=== PATIENT | female | born 1965 | race Caucasian/White ===

== ENCOUNTER 2016-10-11 11:43 | Emergency (ER) | payer OTHER ==
[~2016-10-11] VITALS: Ht 157.5 cm; Wt 110.0 kg
[~2016-10-11 11:43] MED LIST: ARMO60TA PO; CIPR500T4 PO; OXYC-360 PO; PROM25SU8 PO
[2016-10-11 11:44] VITALS: BP 140/79; PULSE 104; RESP 16; TEMP 97.4; O2SAT 99
[2016-10-11] MEDS ORDERED: LISI10TA3 PO (12:51)
[2016-10-11] MEDS ORDERED: LEVO.15 PO (12:51)
--- NOTE | 2016-10-11 12:52 | PD ---
HPI Chief Complaint: Abdominal Pain Time Seen by Provider: 12:52 Travel History International Travel<30 days: No Contact w/Intl Traveler<30days: No Traveled to known affect area: No History of Present Illness HPI 51-year-old female presents to the emergency department for evaluation of abdominal pain. She states the pain is generalized. She is mildly nauseous without vomiting. She has had an episode of diarrhea. Patient states that she has had a large kidney stone on the right and has a procedure scheduled with Dr. Holder October 27 and she is concerned she may not be able to wait this long. Denies any fever. She has felt chilled. She has history appendectomy. She has history of no other abdominal surgeries. No other symptoms to report at this time. [facility] Past Medical History Medical History: Denies Significant Hx ?: Not : 3 Para: 3 Tubal Ligation: Yes Past Surgical History Abdominal Surgery: Yes (LAP BAND 2005) Appendectomy: Yes Section: Yes (X3) Gynecologic Surgery: Yes (RIGHT KIDNEY STONE LASER SURGERY) Hysterectomy: Yes Social History Alcohol Use: No Tobacco Use: No Substance Use: No Allergies-Medications (Allergen,Severity, Reaction): Coded Allergies: Iodinated Contrast Media (Verified Allergy, Severe, Anaphylaxis, 10/11/16) Reported Meds & Prescriptions Reported Meds & Active Scripts Active Zofran (Ondansetron HCl) 4 Mg Tab 4 Mg PO Q6HR PRN Keflex (Cephalexin) 500 Mg Cap 500 Mg PO Q12H 10 Days Reported Lisinopril 10 Mg Tab 10 Mg PO DAILY Synthroid (Levothyroxine Sodium) 150 Mcg Tab 150 Mcg PO DAILY Review of Systems Except as stated in HPI: all other systems reviewed are Neg Physical Exam Narrative GENERAL: Well-nourished female patient, in no acute distress SKIN: Focused skin assessment warm/dry. HEAD: Atraumatic. Normocephalic. EYES: Pupils equal and round. No scleral icterus. No injection or drainage. ENT: No nasal bleeding or discharge. Mucous membranes pink and moist. NECK: Trachea midline. No JVD. CARDIOVASCULAR: Elevated rate and rhythm. No murmur appreciated. RESPIRATORY: No accessory muscle use. Clear to auscultation. Breath sounds equal bilaterally. GASTROINTESTINAL: Abdomen is tender, soft, generalized tenderness with palpation , mild guarding.. Hepatic and splenic margins not palpable. MUSCULOSKELETAL: No obvious deformities. No clubbing. No cyanosis. No edema. No significant CVA tenderness. NEUROLOGICAL: Awake and alert. No obvious cranial nerve deficits. Motor grossly within normal limits. Normal speech. PSYCHIATRIC: Appropriate mood and affect; insight and judgment normal. Data Data Last Documented VS Vital Signs Date Time Temp Pulse Resp B/P Pulse Ox O2 Delivery O2 Flow Rate FiO2 10/11/16 13:24 98 Room Air 10/11/16 11:44 97.4 104 16 140/79 Orders Complete Blood Count With Diff (10/11/16 13:05) Comprehensive Metabolic Panel (10/11/16 13:05) Lipase (10/11/16 13:05) Prothrombin Time / Inr (Pt) (10/11/16 13:05) Act Partial Throm Time (Ptt) (10/11/16 13:05) Urinalysis - C+S If Indicated (10/11/16 13:05) Ct Abd/Pel W/O Iv Contrast (10/11/16 13:05) Iv Access Insert/Monitor (10/11/16 13:05) Ecg Monitoring (10/11/16 13:05) Oximetry (10/11/16 13:05) Sodium Chlor 0.9% 1000 Ml Inj (Ns 1000 M (10/11/16 13:05) Sodium Chloride 0.9% Flush (Ns Flush) (10/11/16 13:15) Electrocardiogram (10/11/16 13:05) Ed Urine Pregnancytest Poc (10/11/16 13:05) Urine Culture (10/11/16 13:10) Ketorolac Inj (Toradol Inj) (10/11/16 14:30) Sodium Chlor 0.9% 1000 Ml Inj (Ns 1000 M (10/11/16 16:30) Ondansetron Inj (Zofran Inj) (10/11/16 16:30) Labs Laboratory Tests Test 10/11/16 10/11/16 13:10 13:13 Urine Color YELLOW Urine Turbidity HAZY Urine pH 5.5 Urine Specific Jones 1.024 Urine Protein 30 mg/dL Urine Glucose (UA) NEG mg/dL Urine Ketones 40 mg/dL Urine Occult Blood MOD Urine Nitrite POS Urine Bilirubin NEG Urine Urobilinogen LESS THAN 2.0 MG/DL Urine Leukocyte Esterase MOD Urine RBC 123 /hpf Urine WBC 28 /hpf Urine Squamous Epithelial 23 /hpf Cells Urine Bacteria MANY /hpf Urine Hyaline Casts 16 /lpf Urine Mucus MANY /lpf Microscopic Urinalysis Comment CULTURE INDICATED White Blood Count 11.8 TH/MM3 Red Blood Count 5.57 MIL/MM3 Hemoglobin 15.7 GM/DL Hematocrit 46.7 % Mean Corpuscular Volume 83.8 FL Mean Corpuscular Hemoglobin 28.2 PG Mean Corpuscular Hemoglobin 33.7 % Concent Red Cell Distribution Width 16.1 % Platelet Count 233 TH/MM3 Mean Platelet Volume 9.6 FL Neutrophils (%) (Auto) 76.5 % Lymphocytes (%) (Auto) 13.1 % Monocytes (%) (Auto) 8.3 % Eosinophils (%) (Auto) 1.7 % Basophils (%) (Auto) 0.4 % Neutrophils # (Auto) 9.0 TH/MM3 Lymphocytes # (Auto) 1.5 TH/MM3 Monocytes # (Auto) 1.0 TH/MM3 Eosinophils # (Auto) 0.2 TH/MM3 Basophils # (Auto) 0.1 TH/MM3 CBC Comment DIFF FINAL Differential Comment Prothrombin Time 10.7 SEC Prothromb Time International 1.0 RATIO Ratio Activated Partial 29.0 SEC Thromboplast Time Sodium Level 135 MEQ/L Potassium Level 3.8 MEQ/L Chloride Level 101 MEQ/L Carbon Dioxide Level 26.3 MEQ/L Anion Gap 8 MEQ/L Blood Urea Nitrogen 12 MG/DL Creatinine 0.93 MG/DL Estimat Glomerular Filtration 63 ML/MIN Rate Random Glucose 80 MG/DL Calcium Level 9.0 MG/DL Total Bilirubin 0.5 MG/DL Aspartate Amino Transf 21 U/L (AST/SGOT) Alanine Aminotransferase 26 U/L (ALT/SGPT) Alkaline Phosphatase 67 U/L Total Protein 7.9 GM/DL Albumin 3.4 GM/DL Lipase 105 U/L [facility] Medical Decision Making Medical Screen Exam Complete: Yes Emergency Medical Condition: Yes Medical Record Reviewed: Yes Differential Diagnosis Gastroenteritis versus pancreatitis versus cholecystitis versus renal calculi versus UTI Narrative Course 51 year-old female presents to emergency department for evaluation of abdominal pain. Patient does have a soft but generally tender abdomen. CBC is without acute concern. CMP is also without acute concern. Lipase is within normal limits. Urinalysis is a 30 proteinuria, 40 ketones, moderate occult blood, positive nitrate, moderate leukocyte esterase, 123 RBC, 28 WBC, many bacteria, many mucus, culture is indicated. I discussed the patient with my attending who recommended contacting Dr. Holder. Dr. Kye is manager talent acquisition for urology and Dr. Holder is out of town until the . He comes and evaluates the patient. He feels that her pain is possibly caused from something other than her stone. After some IV fluid she can be discharged home on oral antibiotics. Plan is discussed with the patient. She is comfortable with this plan of care. She agrees to return immediately with any acute worsening of symptoms. Diagnosis Primary Impression: Gastroenteritis Additional Impressions: UTI (urinary tract infection) Qualified Code: N39.0 - Urinary tract infection with hematuria, site unspecified Renal calculus, right Referrals: Primary Care Physician Urologist Patient Instructions: General Instructions, Urinary Tract Infection in Women ( ED) Additional Instructions: REst Maintain adequate oral hydration [place] diet Advance as tolerated Follow-up with Dr. Holder. Return immediately with any acute worsening of symptoms Med/Other Pt SpecificInfo: Prescription(s) given Scripts Ondansetron (Zofran)4 Mg Tab4 Mg PO Q6HR PRN (NAUSEA OR VOMITING) #15 TAB Ref 0 Prov:Tanya Sharma 10/11/16 Cephalexin (Keflex)500 Mg [id number] Mg PO Q12H 10 Days Ref 0 Prov:Tanya Sharma 10/11/16 Disposition: 01 DISCHARGE HOME Condition: Stable Tanya Sharma Oct 11, 2016 12:52
[2016-10-11] MEDS ORDERED: SODIUM CHLOR 0.9% 1000 ML INJ 1,000 ML IV SCH (13:05)
[2016-10-11] MEDS ORDERED: SODIUM CHLORIDE 0.9% FLUSH 10 ML FLUSH IV FLUSH PRN (13:15)
[2016-10-11 13:24] VITALS: O2SAT 98
[2016-10-11 13:56] LABS: BASOPHIL # 0.1 TH/MM3 (0-0.2); BASOPHIL % 0.4 % (0.0-2.0); EOSINOPHIL # 0.2 TH/MM3 (0-0.4); EOSINOPHIL % 1.7 % (0.0-4.0); HEMATOCRIT 46.7 % (35.0-46.0); HEMO FLAGS DIFF FINAL; LYMPH % 13.1 % (9.0-44.0); LYMPHOCYTE # 1.5 TH/MM3 (1.0-4.8); MEAN CELL VOLUME 83.8 FL (80.0-100.0); MEAN CORPUSCULAR HEMOGLOBIN 28.2 PG (27.0-34.0); MEAN CORPUSCULAR HGB CONC 33.7 % (32.0-36.0); MONO % 8.3 % (0.0-8.0); NEUT % 76.5 % (16.0-70.0); PLATELET COUNT 233 TH/MM3 (150-450); RED BLOOD COUNT 5.57 MIL/MM3 (4.00-5.30); RED CELL DISTRIBUTION WIDTH 16.1 % (11.6-17.2); WHITE BLOOD COUNT 11.8 TH/MM3 (4.0-11.0)
[2016-10-11 14:00] LABS: BACTERIA, URINE MANY /hpf; BLOOD, URINE MOD (NEG); COMMENT (UR) CULTURE INDICATED; CULTURE IF INDICATED CULTURE INDICATED; GLUCOSE,URINE NEG (NEG); HYALINE CAST, URINE 16 /lpf (RARE); KETONE, URINE 40 mg/dL (NEG); MUCUS URINE MANY /lpf (OCC); NITRITE,URINE POS (NEG); PH, URINE 5.5 (5.0-8.5); SQUAMOUS EPITHELIAL CELL URINE 23 /hpf (0-5); URINE COLOR YELLOW (YELLW/STRAW)
[2016-10-11 14:06] LABS: PROTHROMBIN TIME - PATIENT 10.7 SEC (9.8-11.6)
[2016-10-11 14:17] LABS: ALKALINE PHOSPHATASE 67 U/L (45-117); ALT (GPT) 26 U/L (10-53); TOTAL BILIRUBIN ADULT 0.5 MG/DL (0.2-1.0)
[2016-10-11 14:27] LABS: ANION GAP 8 MEQ/L (5-15); AST (GOT) 21 U/L (15-37); BICARBONATE 26.3 MEQ/L (21.0-32.0); BLOOD UREA NITROGEN 12 MG/DL (7-18); CHLORIDE 101 MEQ/L (98-107); GLOMERULAR FILTRATION RATE 63 ML/MIN (>89); POTASSIUM 3.8 MEQ/L (3.5-5.1); SODIUM (NA) 135 MEQ/L (136-145)
[2016-10-11] MEDS ORDERED: KETOROLAC TROMETHAMINE 30 MG/ML (IVP) VIAL IV PUSH ONE (14:30)
--- NOTE | 2016-10-11 14:47 | PD ---
Physical Exam Narrative I, Dr. Fenton, have reviewed the advance practice practitioner's documentation and am in agreement, met with the patient face to face, made the diagnosis, and the medical decision making was done by me. *My assessment and Findings: cholecystitis vs. appendicitis vs. nephrolithiasis vs. UTI vs. colitis vs. gastroenteritis 51yo F with PMH of nephrolithiasis with scheduled surgery for stone removal next month here with diffuse abdominal pain for 2 days. Pt is constant but waxes and wanes and is sharp. +Nausea. +Mild diarrhea. Abdomen is soft, +TTP RUQ, RLQ, suprapubic. No rebound tenderness or guarding. Labs reviewed, mild leukocytosis at 11.8. Lipase normal. UA showed positive nitrite. Moderate leukocyte. Pt given toradol. Urine negative. CT showed large right staghorn calculus without obstruction. Pt was evaluated by urologist in the ED. Pt is to return to the ED if symptoms worsen and follow up with her urologist. Data Data Last Documented VS Vital Signs Date Time Temp Pulse Resp B/P Pulse Ox O2 Delivery O2 Flow Rate FiO2 10/11/16 13:24 98 Room Air 10/11/16 11:44 97.4 104 16 140/79 Orders Complete Blood Count With Diff (10/11/16 13:05) Comprehensive Metabolic Panel (10/11/16 13:05) Lipase (10/11/16 13:05) Prothrombin Time / Inr (Pt) (10/11/16 13:05) Act Partial Throm Time (Ptt) (10/11/16 13:05) Urinalysis - C+S If Indicated (10/11/16 13:05) Ct Abd/Pel W/O Iv Contrast (10/11/16 13:05) Iv Access Insert/Monitor (10/11/16 13:05) Ecg Monitoring (10/11/16 13:05) Oximetry (10/11/16 13:05) Sodium Chlor 0.9% 1000 Ml Inj (Ns 1000 M (10/11/16 13:05) Sodium Chloride 0.9% Flush (Ns Flush) (10/11/16 13:15) Electrocardiogram (10/11/16 13:05) Ed Urine Pregnancytest Poc (10/11/16 13:05) Urine Culture (10/11/16 13:10) Ketorolac Inj (Toradol Inj) (10/11/16 14:30) Sodium Chlor 0.9% 1000 Ml Inj (Ns 1000 M (10/11/16 16:30) Ondansetron Inj (Zofran Inj) (10/11/16 16:30) Labs Laboratory Tests Test 10/11/16 10/11/16 13:10 13:13 Urine Color YELLOW Urine Turbidity HAZY Urine pH 5.5 Urine Specific Peyton 1.024 Urine Protein 30 mg/dL Urine Glucose (UA) NEG mg/dL Urine Ketones 40 mg/dL Urine Occult Blood MOD Urine Nitrite POS Urine Bilirubin NEG Urine Urobilinogen LESS THAN 2.0 MG/DL Urine Leukocyte Esterase MOD Urine RBC 123 /hpf Urine WBC 28 /hpf Urine Squamous Epithelial 23 /hpf Cells Urine Bacteria MANY /hpf Urine Hyaline Casts 16 /lpf Urine Mucus MANY /lpf Microscopic Urinalysis Comment CULTURE INDICATED White Blood Count 11.8 TH/MM3 Red Blood Count 5.57 MIL/MM3 Hemoglobin 15.7 GM/DL Hematocrit 46.7 % Mean Corpuscular Volume 83.8 FL Mean Corpuscular Hemoglobin 28.2 PG Mean Corpuscular Hemoglobin 33.7 % Concent Red Cell Distribution Width 16.1 % Platelet Count 233 TH/MM3 Mean Platelet Volume 9.6 FL Neutrophils (%) (Auto) 76.5 % Lymphocytes (%) (Auto) 13.1 % Monocytes (%) (Auto) 8.3 % Eosinophils (%) (Auto) 1.7 % Basophils (%) (Auto) 0.4 % Neutrophils # (Auto) 9.0 TH/MM3 Lymphocytes # (Auto) 1.5 TH/MM3 Monocytes # (Auto) 1.0 TH/MM3 Eosinophils # (Auto) 0.2 TH/MM3 Basophils # (Auto) 0.1 TH/MM3 CBC Comment DIFF FINAL Differential Comment Prothrombin Time 10.7 SEC Prothromb Time International 1.0 RATIO Ratio Activated Partial 29.0 SEC Thromboplast Time Sodium Level 135 MEQ/L Potassium Level 3.8 MEQ/L Chloride Level 101 MEQ/L Carbon Dioxide Level 26.3 MEQ/L Anion Gap 8 MEQ/L Blood Urea Nitrogen 12 MG/DL Creatinine 0.93 MG/DL Estimat Glomerular Filtration 63 ML/MIN Rate Random Glucose 80 MG/DL Calcium Level 9.0 MG/DL Total Bilirubin 0.5 MG/DL Aspartate Amino Transf 21 U/L (AST/SGOT) Alanine Aminotransferase 26 U/L (ALT/SGPT) Alkaline Phosphatase 67 U/L Total Protein 7.9 GM/DL Albumin 3.4 GM/DL Lipase 105 U/L [facility] Supervised Visit with JEAN: Yes Diagnosis Primary Impression: UTI (urinary tract infection) Qualified Code: N39.0 - Urinary tract infection with hematuria, site unspecified Scripts Ondansetron (Zofran)4 Mg Tab4 Mg PO Q6HR PRN (NAUSEA OR VOMITING) #15 TAB Ref 0 Prov:Tanya Sharma 10/11/16 Cephalexin (Keflex)500 Mg [id number] Mg PO Q12H 10 Days Ref 0 Prov:Tanya Sharma 10/11/16 Daphne Fenton DO Oct 11, 2016 14:47
--- NOTE | 2016-10-11 15:22 | RADRPT ---
EXAM DATE/TIME: 10/11/2016 14:57 [facility] COMPARISON: CT ABDOMEN & PELVIS W/O CONTRAST, July 06, 2012, 15:03. INDICATIONS : Bilateral mid to lower abdominal pain. ORAL CONTRAST: No oral contrast ingested. RADIATION DOSE: 17.27 CTDIvol (mGy) MEDICAL HISTORY : Hypertension. SURGICAL HISTORY : Hysterectomy. Appendectomy.Right renal stone surgery, lap band ENCOUNTER: Initial ACUITY: 4 - 6 days PAIN SCALE: 4/10 LOCATION: Bilateral lower quadrant TECHNIQUE: Volumetric scanning of the abdomen and pelvis was performed. Using automated exposure control and ad justment of the mA and/or kV according to patient size, radiation dose was kept as low as reasonably achievable to obtain optimal diagnostic quality images. DICOM format image data is available electro nically for review and comparison. FINDINGS: LOWER LUNGS: The visualized lower lungs are clear. LIVER: Homogeneous density without lesion. There is no dilation of the biliary tree. No calcified gallston es. Minimal ascites. SPLEEN: Normal size without lesion. PANCREAS: Within normal limits. KIDNEYS: Normal in size and shape. There is no mass, stone, or hydronephrosis on the left. Large staghorn primo culus on the right measures approximately 5.6 x 1.6 cm.. ADRENAL GLANDS: Within normal limits. VASCULAR: There is no aortic aneurysm. BOWEL/MESENTERY: Mild wall thickening involving some lower small bowel loops without obstruction. There is no free in traperitoneal air or fluid. Lab band noted. ABDOMINAL WALL: Within normal limits. RETROPERITONEUM: There is no lymphadenopathy. BLADDER: No wall thickening or mass. REPRODUCTIVE: Within normal limits. INGUINAL: There is no lymphadenopathy or hernia. MUSCULOSKELETAL: Within normal limits for patient age. CONCLUSION: 1. Large staghorn calculus on the right without obstruction. 2. Minimal ascites. 3. Lap band with small hiatal hernia. 4. There is a mild wall thickening involving some lower small bowel loops without obstruction. Rodrigo Key MD on October 11, 2016 at 15:17 Board Certified Radiologist. This report was verified electronically.
[2016-10-11] MEDS ORDERED: ZOFR4TAB PO (16:30)
[2016-10-11] MEDS ORDERED: SODIUM CHLOR 0.9% 1000 ML INJ 1,000 ML IV ONE (16:30)
[2016-10-11] MEDS ORDERED: ONDANSETRON HCL 4 MG/2 ML VIAL IV PUSH ONE (16:30)
[2016-10-11] MEDS ORDERED: CEPH-460 PO (16:30)
--- NOTE | 2016-10-11 17:23 | MB ---
cc: CHI MCCLELLAN DATE OF CONSULTATION 10/11/16 HISTORY OF PRESENT ILLNESS Ms. Sewell is a pleasant 51-year-old female who presented with abdominal pain over the last [address] scan in the emergency room demonstrated a large staghorn calculus approximately 1.8 cm x 5 cm in size. She is under the care of Dr. Holder and is scheduled to undergo a right percutaneous nephrolithotomy in early October. He is presently out of town. She noted some onset of some nausea with vomiting but denies any fever or chills. She denies any right-sided flank pain at present and states her pain has been periumbilical and radiating to primarily the left side of the abdomen. She admits to having prior abdominal surgery with three C-sections and an appendectomy in the past. She presently denies any voiding complaints. PAST MEDICAL HISTORY 1. Hypothyroidism 2. Hypertension. PAST SURGICAL HISTORY 1. x3 2. Appendectomy. SOCIAL HISTORY She denies any smoking or drinking. FAMILY HISTORY She denies any history of malignancies. REVIEW OF SYSTEMS A 12-point review of systems was performed and is negative per the HPI. PHYSICAL EXAMINATION VITAL SIGNS: Temperature is 97, heart rate 94, respiratory rate 16, 140/79 blood pressure, pulse ox is 98% on room air. GENERAL: She is an obese 51-year-old female in no acute distress. HEENT: Normocephalic, atraumatic. Pupils equal, round, react to light. Extraocular movements are intact. NECK: Supple HEART: Regular rate and rhythm. LUNGS: Clear. ABDOMEN: Soft. There is tenderness in the midline area in the left side of her abdomen primarily. There is no rebound and no guarding. There is no CVA tenderness. GENITOURINARY:: Normal female external genitalia is noted. EXTREMITIES: No cyanosis, clubbing or edema. LABORATORY DATA White count is 11.8, hemoglobin 15.7, hematocrit 46.7, platelet count of 233. Sodium 135, potassium 3.8, chloride 101, CO2 26.3, BUN 12, creatinine 0.93, glucose of 80, PT is 10.7, INR is 1.0, PTT is 29.0. Urinalysis shows nitrite positive with 28 red white cells and 123 red cells. IMAGING STUDIES Again shows a large staghorn calculus on the right without obstruction. Minimal ascites. A small hiatal hernia is noted. There is mild wall thickening involving some of the lower small bowel loops without obstruction. ASSESSMENT A 50-year female with history of a large staghorn stone on the right side with diffuse abdominal pain and some small bowel thickening noted on CT scan. I do not believe this is due to her kidney stone, as there is no hydronephrosis and no CVA tenderness. This could related to her small bowel thickening causing pain or mild a gastroenteritis. Would recommend IV fluids and slowly return to p.o. intake. The patient to be followed up by Dr. Holder in a few weeks after he returns from his vacation to undergo right percutaneous nephrolithotomy. Thank you for the consult and allowing me to participate in the care of this patient. Chi GASPAR/ /4:32 PM /5:18 PM
--- NOTE | 2016-10-12 10:12 | EKG ---
Date Performed: 10/11/2016 Time Performed: 13:21:18 PTAGE: 51 years EKG: Sinus rhythm POSSIBLE LEFT ATRIAL ENLARGEMENT BORDERLINE ECG NO PREVIOUS TRACING DOCTOR: Arpit Martinez Interpretating Date/Time 10/12/2016 10:11:44
[2016-10-24] MEDS ORDERED: NEXI40CA PO (11:11)
== END 2016-10-11 18:12 | disposition home or self-care (01) ==
LOC: NEPD 11:43
DX: N39.0 Urinary tract infection, site not specified (principal); N20.0 Calculus of kidney; K52.9 Noninfective gastroenteritis and colitis, unspecified; E03.9 Hypothyroidism, unspecified; I10 Essential (primary) hypertension; D72.829 Elevated white blood cell count, unspecified; Z79.899 Other long term (current) drug therapy
CPT/HCPCS: 74176; 80053; 81001; 83690; 84703; 85025; 85610; 85730; 87077; 87086; 87186; 93005; 96361; 96374; 96375; 99285; J1885; J2405; J7030

== ENCOUNTER 2016-10-25 06:50 | Day surgery (SDC) | payer OTHER ==
[2016-10-25] VITALS (7 sets, daily range): BP systolic 154–184; BP diastolic 73–99; PULSE 71–100; RESP 16–20; TEMP 97.7–97.8; O2SAT 93–97
[~2016-10-25] VITALS: Ht 157.5 cm; Wt 114.0 kg
[~2016-10-25 06:50] MED LIST changes: -ARMO60TA PO; -CIPR500T4 PO; +LEVO.15 PO; +LISI10TA3 PO; +NEXI40CA PO; -OXYC-360 PO; -PROM25SU8 PO; +ZOFR4TAB PO
[2016-10-25] MEDS ORDERED: predniSONE 50 MG TAB PO ONE (07:45)
[2016-10-25] MEDS ORDERED: LEVOFLOXACIN 500 MG PREMIX 100 ML - nephrostomy tube insertion or exchange IV SCH (07:45)
[2016-10-25] MEDS ORDERED: diphenhydrAMINE HCL 50 MG CAP PO ONE (07:45)
[2016-10-25] MEDS ORDERED: SODIUM CHLORIDE 0.9% 1000 ML IV SCH (08:00)
[2016-10-25] MEDS ORDERED: MIDAZOLAM HCL 2 MG/2 ML VIAL ONE ×3 (08:22→10:16)
[2016-10-25] MEDS ORDERED: fentaNYL CITRATE 250 MCG/5 ML AMP ONE (08:23)
--- NOTE | 2016-10-25 10:39 | PD.RAD ---
Post Procedure Progress Note Pre Procedure Diagnosis: (1) Renal calculus, right Post Procedure Diagnosis: (1) Renal calculus, right Procedure Date: Oct 25, 2016 Supervising Radiologist: Shahid Garcia JR Proceduralist/Assist: Caterina Rivera, RT(R), Micaela Castellon, RT(R), Una Salcido RT(R)() Anesthesia: Conscious Sedation Plan of Activity Patient to Unit: ROPU Patient Condition: Good See PACS Report for procedural detail/treatment Drainage Procedure Procedure 1 Imaging Guidance: Fluoroscopy, Ultrasound Side: Right Procedure Type: Nephrostomy, Ureteral Stent Procedure: Placement Fluid Description: Clear Findings: Large staghorn calculus of right kidney. Difficult case due to size of stone and patient body habitus. Upper pole access requested. Two accesses obtained. Black catheter is upper pole and goes down to urinary bladder. Blue catheter is mid pole and coiled in renal pelvis. Jr. Jose,Shahid Collier MD Oct 25, 2016 10:39
[2016-10-25] MEDS ORDERED: IOHEXOL 350 MG/ML 50 ML BTL (for RAD DIAG) ONE (10:52)
[2016-10-25] MEDS ORDERED: HYDROmorphone HCL PF 1 MG/ML VIAL IV PUSH ONE (12:15)
--- NOTE | 2016-10-25 16:22 | RADRPT ---
EXAM DATE/TIME: 10/25/2016 08:40 [facility] COMPARISON: No previous studies available for comparison. INDICATIONS : Patient with a staghorn calculus involving the right kidney. Upper pole access requested. MEDICAL HISTORY : HTN, Hypothyroidism, GERD, Large right staghorn calculus SURGICAL HISTORY : Lap band surgery, Appendectomy, Tubal ligation ENCOUNTER: Initial ACUITY: >1 year PAIN SCORE: 0/10 FLUORO TIME: 26.9 minutes IMAGE SERIES: 0 SEDATION TIME: 120 minutes CONTRAST: 20 cc Omnipaque (iohexol) 350 MEDICATION(S): 1.) 8 mg midazolam (Versed) IV 2.) 350 mcg fentanyl (Sublimaze) IV Prophylactic antibiotics were administered with appropriate pre-procedure timing. Vancomycin within 2 hours of procedure, Ancef (or alternative) within 1 hour of procedure. DEVICE(S): 1.) 8 Ukrainian X25CM nephrostomy catheter 2.) [id number] Straight Glidecath PROCEDURE : 1. ultrasound and fluoroscopic guided percutaneous nephroureteral catheter 2. Ultrasound and fluoroscopic guided percutaneous nephrostomy tube placement The risks, benefits and alternatives to the procedure were explained and verbal and written consent w as obtained. The site was prepped in sterile fashion. Full sterile technique was used, including ca p, mask, sterile gloves and gown and a large sterile sheet. Hand hygiene and 2% chlorhexidine and/or betadine/alcohol prep was utilized per protocol for cutaneous antisepsis. The skin and subcutaneous tissues were infiltrated with local anesthetic solution. There is a large staghorn calculus seen. The patient has an allergy to contrast and therefore no cont rast was utilized during the procedure. Ultrasound evaluation of the right flank was performed. This is very limited due to the patient's body habitus. Fluoroscopic guidance was utilized to pass a 21 ga uge needle down to the lower pole calyx which was easily visualized secondary to the stone. I was rd ble to get a wire to pass centrally. A second access was performed involving a mid pole but this was met with the same issue. Lastly, a mid to upper pole access was performed and I was able to get a wir e to pass centrally. A 4 Ukrainian sheath was passed over the wire and through this air was injected int o the collecting system. As highlighted the collecting system sufficiently to allow the upper pole ac cess. Under fluoroscopic guidance a 21 gauge needle was passed down to a upper pole calyx. A 0.018 wi re was passed into the ureter under fluoroscopic control. An [facility] system was utilized to exchang e for a 0.035 wire. A Berenstein catheter was utilized to gain access to the urinary bladder from the upper pole access. A 4 Ukrainian straight glide catheter was passed through the upper pole access and i nto the urinary bladder. This was sutured in place. The initial mid/upper pole access was unable to g ain access to the ureter. This is secondary to the stone burden. A nephrostomy tube was therefore coi led within the renal pelvis and sutured in place. CONCLUSION: Large staghorn calculus. An upper pole access with a 4 Ukrainian catheter down to the urinary bladder. A mid/upper pole access with an 8 Ukrainian nephrostomy tube coiled within the renal pelvis. Shahid Garcia Jr., MD on October 25, 2016 at 15:56 Board Certified Radiologist. This report was verified electronically.
== END 2016-10-25 13:55 | disposition home or self-care (01) ==
LOC: HROP 06:50 → HRIP 06:51 → HROP 13:55
PROVIDERS: ATTEND Urology
DX: N20.0 Calculus of kidney (principal); I10 Essential (primary) hypertension; E03.9 Hypothyroidism, unspecified; K21.9 Gastro-esophageal reflux disease without esophagitis
CPT/HCPCS: 50432; 50433; 99152; 99153; C1729; C1769; C1887; C1894; J1170; J1956; J2250; J3010; Q9967

== ENCOUNTER 2016-10-27 11:27 | Observation (INO) | payer OTHER ==
[~2016-10-27] VITALS: Ht 157.5 cm; Wt 113.6 kg
[~2016-10-27 11:27] MED LIST changes: -ZOFR4TAB PO
[2016-10-27 11:56] VITALS: BP 158/86; PULSE 88; RESP 20; TEMP 98.3; O2SAT 97
[2016-10-27] MEDS ORDERED: ONDANSETRON HCL 4 MG/2 ML VIAL IV PUSH ONE (12:00)
[2016-10-27] MEDS ORDERED: NEOSTIGMINE 3 MG/3 ML SYR IV ONE (12:00)
[2016-10-27] MEDS ORDERED: LACTATED RINGER'S 1000 ML IV PRN (12:00)
[2016-10-27] MEDS ORDERED: SODIUM CHLORID 0.9% 500 ML IV PRN (12:00)
[2016-10-27] MEDS ORDERED: PROPOFOL 200 MG/20 ML AMP IV ONE (12:00)
[2016-10-27] MEDS ORDERED: METOPROLOL TARTRATE 25 MG TAB PO PRN (12:00)
[2016-10-27] MEDS ORDERED: MORPHINE SULFATE 4 MG/ML INJ IV ONE (12:00)
[2016-10-27] MEDS ORDERED: CHLORHEXIDINE GLUCONATE 2 % 1 PACK (2 CLOTHS) TOPICAL PRN (12:00)
[2016-10-27] MEDS ORDERED: ceFAZolin 2 GM PREMIX 50 ML IV SCH (12:00)
[2016-10-27] MEDS ORDERED: INSULIN HUMAN REGULAR 1,000 UNITS/10 ML VIAL SQ PRN (12:00)
[2016-10-27] MEDS ORDERED: FAMOTIDINE 20 MG/2 ML VIAL ONE (12:54)
[2016-10-27] MEDS ORDERED: MIDAZOLAM HCL 2 MG/2 ML VIAL ONE (12:54)
[2016-10-27] MEDS ORDERED: fentaNYL CITRATE 250 MCG/5 ML AMP ONE (13:26)
[2016-10-27] MEDS ORDERED: ACETAMINOPHEN 1000 MG/100 ML VIAL IV ONE (13:26)
[2016-10-27] MEDS ORDERED: diphenhydrAMINE HCL 50 MG/ML VIAL ONE (13:27)
[2016-10-27] MEDS ORDERED: Post-op Orders (for Pharmacy) MISC XX ONE (16:30)
[2016-10-27] MEDS ORDERED: oxyCODONE/ACETAMINOPHEN 5 MG/325 MG TAB PO PRN ×2 (16:30)
[2016-10-27] MEDS ORDERED: SODIUM CHLORIDE 0.9% FLUSH 10 ML FLUSH IV FLUSH PRN (16:30)
[2016-10-27] MEDS ORDERED: MORPHINE SULFATE 4 MG/ML INJ IV PRN (16:30)
[2016-10-27] MEDS ORDERED: DO NOT ADM ANY ANTICOAGULANT DRUGS PRN (17:15)
[2016-10-27] MEDS ORDERED: *ONDANSETRON 4 MG VIAL PERIprocedural Use ONLY ONE (17:26)
[2016-10-27] MEDS: SODIUM CHLOR 0.9% 1000 ML INJ 1,000 ML IV SCH (17:49)
[2016-10-27] MEDS: OXYBUTYNIN CHLORIDE 5 MG TAB PO SCH (18:00)
--- NOTE | 2016-10-27 18:16 | RADRPT ---
EXAM DATE/TIME: 10/27/2016 14:10 [facility] COMPARISON: No previous studies available for comparison. INDICATIONS : Right lithotripsy. MEDICAL HISTORY : Renal calculi. SURGICAL HISTORY : None. ENCOUNTER: Initial ACUITY: 1 day PAIN SCORE: Non-responsive. LOCATION: Right Abdomen. FINDINGS: Single frontal view of the right flank is recorded digitally using C-arm with catheter and wire in pl didier. There is also contrast in the dilated collecting system. CONCLUSION: Intraoperative image. Shahid Rivera MD on October 27, 2016 at 18:13 Board Certified Radiologist. This report was verified electronically.
[2016-10-27] MEDS: HEPARIN SODIUM - SQ 10,000 UNITS/ML VIAL SQ SCH (20:00)
[2016-10-27] MEDS: SODIUM CHLORIDE 0.9% FLUSH 10 ML FLUSH IV FLUSH SCH (21:00)
[2016-10-27] MEDS: ONDANSETRON HCL 4 MG/2 ML VIAL IV PRN (21:07)
[2016-10-27] MEDS: MORPHINE SULFATE 4 MG/ML INJ IV PRN (21:08)
[2016-10-28] VITALS: BP 154/74; PULSE 81; RESP 18; TEMP 97.8; O2SAT 93
[2016-10-28] MEDS: SODIUM CHLOR 0.9% 1000 ML INJ 1,000 ML IV SCH ×3 (02:00→17:25)
[2016-10-28 05:47] LABS: HEMATOCRIT 38.8 % (35.0-46.0); MEAN CELL VOLUME 83.8 FL (80.0-100.0); MEAN CORPUSCULAR HEMOGLOBIN 27.4 PG (27.0-34.0); MEAN CORPUSCULAR HGB CONC 32.7 % (32.0-36.0); PLATELET COUNT 224 TH/MM3 (150-450); RED BLOOD COUNT 4.63 MIL/MM3 (4.00-5.30); RED CELL DISTRIBUTION WIDTH 16.2 % (11.6-17.2); REVIEW FLAG FINAL; WHITE BLOOD COUNT 11.3 TH/MM3 (4.0-11.0)
[2016-10-28 06:07] LABS: BICARBONATE 26.6 MEQ/L (21.0-32.0); POTASSIUM 3.9 MEQ/L (3.5-5.1)
[2016-10-28 08:00] VITALS: BP 139/72; PULSE 82; RESP 17; TEMP 97.4; O2SAT 93
[2016-10-28] MEDS: SODIUM CHLORIDE 0.9% FLUSH 10 ML FLUSH IV FLUSH SCH ×2 (09:00→22:18)
[2016-10-28] MEDS: OXYBUTYNIN CHLORIDE 5 MG TAB PO SCH ×3 (09:00→17:25)
[2016-10-28] MEDS: HEPARIN SODIUM - SQ 10,000 UNITS/ML VIAL SQ SCH ×2 (09:07→22:18)
[2016-10-28] MEDS: ONDANSETRON HCL 4 MG/2 ML VIAL IV PRN (09:08)
[2016-10-28] MEDS: MORPHINE SULFATE 4 MG/ML INJ IV PRN ×4 (09:08→17:25)
[2016-10-28 12:00] VITALS: BP 157/74; PULSE 73; RESP 17; TEMP 97.7; O2SAT 92
--- NOTE | 2016-10-28 12:35 | MP ---
cc: GLO COLLINS MD DATE OF SURGERY 10/27/16 PREOPERATIVE DIAGNOSIS Right nephrolithiasis POSTOPERATIVE DIAGNOSIS Right nephrolithiasis SURGEON Nadeen Collins MD PROCEDURE Right percutaneous nephrolithotrisy. PERTINENT FINDINGS 1. Large Staghorn calculus noted involving the right renal pelvis and mid and lower pole, approximately 5-6 cm of total stones noted within the kidney. 2. Removal of all visible stone. However, there appears to be a small fragment noted in the lower pole unable to be reached. HISTORY OF PRESENT ILLNESS Carla Sewell is a 51-year-old female who was found to have right side nephrolithiasis, presents today for definitive management of the right PCNL. The patient has a large Staghorn calculus measuring approximately 5-[address] scan involving the right upper renal pelvis, mid calyces as well as lower pole calices. PROCEDURE IN DETAIL After proper informed consent was obtained, the patient was brought to the operating room and sandeep supine in the OR table. Bilateral lower extremities SCDs were placed. The patient placed under anesthesia. The patient then placed in the prone position ensuring all pressure points were padded properly. A Walls catheter was placed prior to placement in the prone position. After adequate placement, the patient was then prepped and draped in standard surgical fashion. After proper time out was completed, the right nephrostomy tube site was indicated. There were two sites, one with a ureteral catheter in the lower to mid pole and another one at some upper pole accessing just the kidney only. Wires were placed on both to identify easier access to the stone. However, it proved to be difficult on both sides. It appeared to be a more direct shot to come from the upper pole. Therefore, the wire was passed into upper pole catheter and guided into the ureter and down to the bladder. This was confirmed with video fluoroscopy. At this point, in incision was made in the skin and dual lumen catheter was placed over the wire into the renal pelvis. Contrast was administered which showed difficult passage of the wire into the renal pelvis and stone. Following this, it was decided to cannulate the mid pole noé access. A wire was passed into this position and proved to slide into the renal pelvis and ureter easier. Then another incision was made at this point and dual lumen catheter was placed. The contrast was administered which showed good position and access to the stone. Therefore, a second wire was placed through the dual-lumen catheter. A skin incision was made larger and a balloon dilator was inserted over the super stiff wire into this access point. After balloon was inflated, the sheath was advanced over the balloon into the kidney. After adequate dilation, the balloon was removed and the nephroscope was advanced. The kidney was rather tight to advance through. The stone was encountered in the mid renal pelvis and the cyberwand was used to break up the stone. It appeared to be a soft stone. The stone extended from the renal pelvis all the way down to the mid and lower pole calices. All stone that was visible on fluoroscopy was fragmented except for a small portion noted in the lower pole noé. This was unable to be reached by the rigid nephroscope. After removal of all visible stone, the nephroscope was removed and the flexible cystoscope was inserted. This was investigating all of the calices, however, no other stone was visible, however, this was difficult to navigate the boggy visibility. At this point, the cystoscope was removed and an open-ended catheter was placed through the kidney over the wire into the bladder. The wire was removed. The 20-[employer]bian Straightener Hand cath was advanced over a wire through the sheath into the renal pelvis and the sheath was removed. The balloon was inflated to approximately 3 mL. This was confirmed good position via fluoroscopy and contrast administration. At this point, the other wire from another access point was removed. The skin incision was closed with a 2-0 Vicryl stitch. The catheters were then secured in position with 2-0 Vicryl stitch. Dressings were then applied and the patient was then returned to the supine position. The patient was then taken to post anesthesia care unit in stable condition. DISPOSITION The patient is to be admitted for overnight observation with plan for discharge home tomorrow. We will obtain a CT scan tomorrow morning to evaluate any remaining stone burden. Hanna Garcia /4:34 PM /12:24 PM TAHIR
[2016-10-28 16:00] VITALS: BP 123/65; PULSE 80; RESP 17; TEMP 99; O2SAT 94
--- NOTE | 2016-10-28 18:29 | HHI.PR ---
Subjective Patient symptoms today POD#1 Right PCNL Pain moderately controlled. Walls removed this am. Voided. Minimal drainage output from nephrostomy Objective Vital Signs Vital Signs Date Time Temp Pulse Resp B/P Pulse Ox O2 Delivery O2 Flow Rate FiO2 10/28/16 16:00 99.0 80 17 123/65 94 10/28/16 12:00 97.7 73 17 157/74 92 10/28/16 08:00 97.4 82 17 139/72 93 10/28/16 00:00 97.8 81 18 154/74 93 Intake & Output 10/28/16 10/28/16 07:00 19:00 Intake Total 1333 ml 560 ml Output Total 745 ml 350 ml Balance 588 ml 210 ml Intake Oral 560 ml IV Total 1333 ml Output Urine Total 575 ml 350 ml Drainage Total 170 ml # Bowel Movements 0 Result Diagram: 10/28/1643410/28/16 043 Objective Remarks NAD, AAOx3 Resp NL Ab S/NT/ND Right nephrostomy tube in place with ureteral catheter in place as well Medications and IVs Current Medications Medications (Trade) Dose Ordered Sig/Berkley Route Start Time Stop Time Status Last Admin Lactated Ringer's 1,000 ml @ 30 mls/hr Q24H PRN IV 10/27/16 12:00 10/30/16 11:59 10/27/16 12:30 Sodium Chloride 500 ml @ 30 mls/hr [id number] PRN IV 10/27/16 12:00 10/30/16 11:59 (NS 1000 ml Inj) 1,000 ml @ 125 mls/hr Q8H IV 10/27/16 18:00 10/28/16 17:25 (NS Flush) 2 ml UNSCH PRN IV FLUSH 10/27/16 16:30 (NS Flush) 2 ml BID IV FLUSH 10/27/16 21:00 (Percocet 5-325 Mg) 1 tab Q4H PRN PO 10/27/16 16:30 (Percocet 5-325 Mg) 2 tab Q4H PRN PO 10/27/16 16:30 (Morphine Inj) 2 mg Q2H PRN IV 10/27/16 16:30 10/28/16 05:29 (Morphine Inj) 4 mg Q2H PRN IV 10/27/16 16:30 10/28/16 17:25 (Ditropan) 5 mg TID PO 10/27/16 18:00 10/28/16 17:25 (Zofran Inj) 4 mg Q6H PRN IV 10/27/16 16:30 10/28/16 09:08 (Heparin Inj) 5,000 units Q12H SQ 10/27/16 20:00 10/28/16 09:07 Assessment and Plan Assessment and Plan POD#1 Right PCNL -Pain not well controlled. Start IV Tyelonol, Dilaudid. D/C morphine -Regular diet -CT scan ordered to be completed 9am. However this was not done. Requesting CT scan to be completely KELSIE -Nephrostomy tube and ureteral catheter removed today at bedside -Plan for discharge tomorrow based on CT scan findings Robert Holder MD Oct 28, 2016 18:29
[2016-10-28] MEDS ORDERED: HYDROmorphone HCL PF 1 MG/ML VIAL SQ ONE (18:45)
[2016-10-28] MEDS: ACETAMINOPHEN 1000 MG/100 ML VIAL IV SCH (18:49)
[2016-10-28 20:00] VITALS: BP 118/62; PULSE 79; RESP 16; TEMP 97.6; O2SAT 94
--- NOTE | 2016-10-28 22:21 | RADRPT ---
EXAM DATE/TIME: 10/28/2016 21:38 [facility] COMPARISON: ABDOMEN SINGLE VIEW, October 27, 2016, 14:10. URETERAL STENT W SEPERATE NEPH, October 25, 2016, 8:40. CT ABDOMEN & PELVIS W/O CONTRAST, October 11, 2016, 14:57. INDICATIONS : Right flank pain. ORAL CONTRAST: No oral contrast ingested. RADIATION DOSE: 8.49 CTDIvol (mGy) MEDICAL HISTORY : Chronic obstructive pulmonary disease. SURGICAL HISTORY : Appendectomy. Tubal ligation.Lap band. ENCOUNTER: Initial ACUITY: 1 day PAIN SCALE: 7/10 LOCATION: Right flank TECHNIQUE: Volumetric scanning of the abdomen and pelvis was performed. Using automated exposure control and ad justment of the mA and/or kV according to patient size, radiation dose was kept as low as reasonably achievable to obtain optimal diagnostic quality images. DICOM format image data is available electro nically for review and comparison. FINDINGS: Patient has undergone procedure to remove a staghorn calculus on the right side. A percutaneous neph rostomy and ureteral stent have been in place. On today's examination, there is induration of the pe rinephric fat on the right side. There is a residual calcific fragments in the region of the upper p ole renal pelvis which measures 11 mm and there is a residual calcified stone in the lower pole measu ring 12 mm. There is mild dilation of the collecting system the right kidney and there is focal stuart ection of gas adjacent to the superior pole stone. There is induration of the fat in the perinephric space and a small collection of gas near the surface of the posterior midpole, probably along the tr act of the percutaneous nephrostomy. Several collections of gas are seen in the posterior back muscu lature along the tract as well. There is thickening of the wall of the extrarenal pelvis and proximal ureter. There 2 tiny calcifica tions at the ureteral pelvic junction and there is a thin collection of gas which appears to extend e xternal to the proximal ureter medially. This is best seen on coronal image #56. Induration of the soft tissues about the right ureter extends 8 cm distal to the ureteropelvic junction. The left kidney is intact. LAP and device in place and in good position. No calcified gallstones. Liver, spleen, and pancreas are grossly unremarkable for noncontrast technique. No dilated loops of small large bowel. Anteverted uterus. Bladder contour is smooth. There is a small right pleural ef fusion which measures 1.6 cm. Osseous structures are grossly intact. CONCLUSION: Abnormal appearance to the proximal right ureter with diffuse induration of the soft tissues about an d a thin linear collection of gas which appears to extend outside of the ureter into the soft tissues medial. This suggests perforation of the proximal right ureter. There is a residual stone fragment s in the upper pole of the right kidney with some surrounding gas and gas is also seen along the cour se of the previous right nephrostomy catheter. Shahid Rivera MD on October 28, 2016 at 22:07 Board Certified Radiologist. This report was verified electronically.
[2016-10-28] MEDS: HYDROmorphone HCL PF 1 MG/ML VIAL IV PUSH PRN (22:22)
[2016-10-29] VITALS: BP 117/56; PULSE 80; RESP 16; TEMP 97.8; O2SAT 95
[2016-10-29] MEDS: ACETAMINOPHEN 1000 MG/100 ML VIAL IV SCH ×3 (01:52→13:13)
[2016-10-29] MEDS: SODIUM CHLOR 0.9% 1000 ML INJ 1,000 ML IV SCH ×2 (01:52→10:03)
[2016-10-29] MEDS: HYDROmorphone HCL PF 1 MG/ML VIAL IV PUSH PRN ×3 (01:58→09:58)
[2016-10-29 05:12] LABS: HEMATOCRIT 36.4 % (35.0-46.0); MEAN CELL VOLUME 84.3 FL (80.0-100.0); MEAN CORPUSCULAR HEMOGLOBIN 27.2 PG (27.0-34.0); MEAN CORPUSCULAR HGB CONC 32.3 % (32.0-36.0); PLATELET COUNT 227 TH/MM3 (150-450); RED BLOOD COUNT 4.31 MIL/MM3 (4.00-5.30); RED CELL DISTRIBUTION WIDTH 15.8 % (11.6-17.2); REVIEW FLAG FINAL
[2016-10-29 05:31] LABS: BICARBONATE 27.6 MEQ/L (21.0-32.0); POTASSIUM 3.5 MEQ/L (3.5-5.1)
[2016-10-29 08:00] VITALS: BP 133/65; PULSE 93; RESP 18; TEMP 99.7; O2SAT 97
[2016-10-29] MEDS: OXYBUTYNIN CHLORIDE 5 MG TAB PO SCH ×2 (10:01→13:13)
[2016-10-29] MEDS: SODIUM CHLORIDE 0.9% FLUSH 10 ML FLUSH IV FLUSH SCH (10:02)
[2016-10-29] MEDS: HEPARIN SODIUM - SQ 10,000 UNITS/ML VIAL SQ SCH (10:02)
[2016-10-29 12:00] VITALS: BP 138/72; PULSE 96; RESP 18; TEMP 99.4; O2SAT 97
--- NOTE | 2016-10-29 13:34 | HHI.PR ---
Subjective Patient symptoms today POD#2 Right PCNL Pain improved. Tolerating diet. CT scan with some residual stone, air in collecting system from procedure. Objective Vital Signs Vital Signs Date Time Temp Pulse Resp B/P Pulse Ox O2 Delivery O2 Flow Rate FiO2 10/29/16 12:00 99.4 96 18 138/72 97 10/29/16 10:28 16 10/29/16 10:28 16 10/29/16 08:00 99.7 93 18 133/65 97 10/29/16 00:00 97.8 80 16 117/56 95 10/28/16 20:00 97.6 79 16 118/62 94 10/28/16 16:00 99.0 80 17 123/65 94 Result Diagram: 10/29/1644110/29/16441 Objective Remarks NAD, AAOx3 Resp NL Ab S/NT/ND Right flank dressings in place, tender Medications and IVs Current Medications Medications (Trade) Dose Ordered Sig/Berkley Route Start Time Stop Time Status Last Admin Lactated Ringer's 1,000 ml @ 30 mls/hr Q24H PRN IV 10/27/16 12:00 10/30/16 11:59 10/27/16 12:30 Sodium Chloride 500 ml @ 30 mls/hr [id number] PRN IV 10/27/16 12:00 10/30/16 11:59 (NS 1000 ml Inj) 1,000 ml @ 125 mls/hr Q8H IV 10/27/16 18:00 10/29/16 10:03 (NS Flush) 2 ml UNSCH PRN IV FLUSH 10/27/16 16:30 (NS Flush) 2 ml BID IV FLUSH 10/27/16 21:00 10/29/16 10:02 (Percocet 5-325 Mg) 1 tab Q4H PRN PO 10/27/16 16:30 (Percocet 5-325 Mg) 2 tab Q4H PRN PO 10/27/16 16:30 10/29/16 13:13 (Ditropan) 5 mg TID PO 10/27/16 18:00 10/29/16 13:13 (Zofran Inj) 4 mg Q6H PRN IV 10/27/16 16:30 10/28/16 09:08 (Heparin Inj) 5,000 units Q12H SQ 10/27/16 20:00 10/29/16 10:02 (Ofirmev Inj) 1,000 mg Q6H IV 10/28/16 20:00 10/29/16 13:13 (Dilaudid Pf Inj) 0.2 mg Q4H PRN IV PUSH 10/28/16 18:30 10/29/16 09:58 Assessment and Plan Assessment and Plan POD#2 Right PCNL -Reviewed CT scan, some stone fragments remaining, however no obstruction -Patient to be discharged with follow-up in clinc in 1-2weeks Robert Holder MD Oct 29, 2016 13:33
[2016-10-29] MEDS ORDERED: CIPR-9 PO (13:36)
[2016-10-29] MEDS ORDERED: OXYC1TAB63 PO (13:36)
--- NOTE | 2016-10-29 13:40 | HHI.DS ---
Discharge Summary Admission Date Oct 27, 2016 at 16:33 Discharge Date: Oct 29, 2016 Admitting Diagnosis Nephrolithiasis (1) Renal calculus, right Diagnosis: Principal Procedures Right PCNL CBC/BMP: 10/29/16 0442 10/29/16 044 Significant Findings Laboratory Tests Test 10/28/16 10/29/16 04:35 04:42 White Blood Count 11.3 TH/MM3 (4.0-11.0) Estimat Glomerular Filtration 82 ML/MIN (>89) Rate Random Glucose 107 MG/DL 112 MG/DL (74-106) (74-106) Calcium Level 7.9 MG/DL 7.7 MG/DL (8.5-10.1) (8.5-10.1) Hospital Course 51yo female admitted s/p Right PCNL on 10/27/16. She did well post-opertively, Pain controlled after nephrostomy tube removed on POD#1. Ct scan showed some residual stone burden, no obstruction. Patient discharged home on POD#2 with pain medication and antibiortcs with follw-up in clinic in 1-2 weeks Pt Condition on Discharge: Good Discharge Disposition: Discharge Home Discharge Instructions DIET: Follow Instructions for: As Tolerated, No Restrictions Activities you can perform: Shower Only-No Bath New Medications: Ciprofloxacin (Cipro) 500 Mg Tab 500 MG PO BID Infection #10 Ref 0 TAB Oxycodone-Acetaminophen (Oxycodone-Acetaminophen) 5-325 mg Tab 2 TAB PO Q6HR PRN pain #60 TAB Continued Medications: Esomeprazole DR (Nexium) 40 Mg Capdr 40 MG PO DAILY Ref 0 CAP Levothyroxine (Synthroid) 150 Mcg Tab 150 MCG PO DAILY Thyroid #30 Ref 0 TAB Lisinopril (Lisinopril) 10 Mg Tab 10 MG PO DAILY #30 Ref 0 TAB Robert Holder MD Oct 29, 2016 13:40
== END 2016-10-29 16:00 | disposition home or self-care (01) ==
LOC: HSDC 11:27 → N07A 16:33 → N07B 20:55
PROVIDERS: ADMIT Urology; ATTEND Urology
DX: N20.0 Calculus of kidney (principal); J44.9 Chronic obstructive pulmonary disease, unspecified; R10.31 Right lower quadrant pain; I10 Essential (primary) hypertension; Z98.84 Bariatric surgery status
CPT/HCPCS: 00860; 50081; 50395; 74000; 74176; 76000; 80048; 85027; 96365; 96366; 96372; 96375; 96376; C1726; C1769; G0378; J0131; J0690; J1170; J1200; J1644; J2250; J2270; J2405; J2710; J3010; J7030; J7120